=== PATIENT | male | born 2000 | race African-American/Black ===

== ENCOUNTER 2021-09-26 11:49 | Emergency (ER) | payer OTHER ==
[~2021-09-26] VITALS: Ht 170.2 cm; Wt 77.1 kg
[~2021-09-26 11:49] MED LIST: PERCOCET 5-3251 EACH PO; VOLTAREN **OUT75 MG PO
[2021-09-26 13:33] LABS: INFLUENZA A NAA NEGATIVE (NEGATIVE)
[2021-09-26 13:37] LABS: CORONAVIRUS 2019 SARS-COV-2 POSITIVE (NEGATIVE)
[2021-09-26] MEDS ORDERED: PAXLOVID CO-PA1 EAC1 PO (13:45)
[2021-09-26] MEDS ORDERED: ONDANSETRON ODT4 MG PO (13:45)
== END 2021-09-26 13:51 | disposition home or self-care (01) ==
LOC: FER 11:49
PROVIDERS: Physician Assistant
DX: U07.1 COVID-19 (principal); F17.210 Nicotine dependence, cigarettes, uncomplicated; Z28.310 Unvaccinated for COVID-19
CPT/HCPCS: 99283; U0002